=== PATIENT | female | born 1970 | race African-American/Black ===

== ENCOUNTER 2023-04-03 12:22 | Emergency (ER) | payer MEDICAID ==
[~2023-04-03] VITALS: Ht 170.2 cm; Wt 67.6 kg
[2023-04-03 12:31] VITALS: BP 129/76; PULSE 82; RESP 18; TEMP 97; O2SAT 98
--- NOTE | 2023-04-03 12:38 | NUR ---
PT AMBULATED TO BED 02
[2023-04-03] MEDS ORDERED: BACITRACIN OINT 500 UNITS/GM PKT TP ONE (12:50)
--- NOTE | 2023-04-03 13:08 | NUR ---
PT'S RIGHT FOOT DRESSED W/ NONADHERENT GAUZE PAD AND WRAPPED W/ GAUZE ROLL. +CMS
--- NOTE | 2023-04-03 13:12 | NUR ---
52 Y/O FEMALE BIB FAMILY, PATIENT PRESENTS TO ED WITH RIGHT FOOT LAC FROM YESTERDAY. PT STATES SHE WAS HOLDING A MIGUEL JAR AND STATES IT SLIPPED OUT OF HANDS ONTO FOOT. PT STATES LAC WAS SMALL, WENT TO BED AND WOKE UP THE NEXT MORNING WITH SATURATED BLOOD ON SHEETS. DENIES N/V/D; SKIN IS PINK/WARM/DRY; AAOX4 WITH EVEN AND STEADY GAIT; LUNGS CLEAR BL; HR EVEN AND REGULAR; PT DENIES ANY FEVER, CP, SOB, OR COUGH AT THIS TIME; PATIENT STATES PAIN OF 4/10 AT THIS TIME; VSS; PATIENT POSITIONED FOR COMFORT; HOB ELEVATED; BEDRAILS UP X2; BED DOWN. ER MD MADE AWARE OF PT STATUS. CALL LIGHT WITHIN REACH. PMH: DM2 SANDRA
[2023-04-03] MEDS ORDERED: IBUP-2213 PO (13:25)
[2023-04-03] MEDS ORDERED: BACI-418 TP (13:25)
[2023-04-03] MEDS ORDERED: CEPH-588 PO (13:25)
[2023-04-03 13:40] VITALS: BP 129/76; PULSE 82; RESP 18; TEMP 97; O2SAT 98
--- NOTE | 2023-04-03 13:40 | NUR ---
Patient discharged with v/s stable. Written and verbal after care instructions given and explained. Patient alert, oriented and verbalized understanding of instructions. Ambulatory with FAMILY to car. All questions addressed prior to discharge. ID band removed. Patient advised to follow up with PMD. Rx of BACITRACIN, KEFLEX (SENT) given. Patient educated on indication of medication including possible reaction and side effects. Opportunity to ask questions provided and answered.
== END 2023-04-03 13:40 | disposition home or self-care (01) ==
LOC: MED 12:22
DX: S91.311A Laceration without foreign body, right foot, initial encounter (principal); Z79.899 Other long term (current) drug therapy; W45.8XXA Other foreign body or object entering through skin, initial encounter; Y93.89 Activity, other specified; Y92.89 Other specified places as the place of occurrence of the external cause; Y99.8 Other external cause status
CPT/HCPCS: 73630; 90471; 90715; 99283; Q0092